=== PATIENT | female | born 1990 | race African-American/Black ===

== ENCOUNTER 2021-08-16 02:37 | Emergency (ER) | payer OTHER ==
[2021-08-16] MEDS ORDERED: Ketorolac Tromethamine 30 MG/ML VIAL ONE (02:59)
[2021-08-16] MEDS ORDERED: Metoclopramide HCl 10 MG/2 ML VIAL ONE (02:59)
[2021-08-16] MEDS ORDERED: Ondansetron PF 4 MG/2 ML Vial ONE (03:13)
== END 2021-08-16 04:30 | disposition home or self-care (01) ==
LOC: CSHERS 02:37
DX: R51.9 Headache, unspecified (principal); R11.0 Nausea; J45.909 Unspecified asthma, uncomplicated; F17.210 Nicotine dependence, cigarettes, uncomplicated
CPT/HCPCS: 96365; 96375; J1885; J2405; J2765